=== PATIENT | female | born 1990 | race Caucasian/White ===

== ENCOUNTER → 2020-01-09 10:41 | Outpatient (BNVA) | payer BC, MEDICAID, SELFPAY | PROVIDERS: PCP Orthopaedic Surgery; Visit Provider Family Medicine | DX: L20.89 Other atopic dermatitis (principal); Z34.93 Encounter for supervision of normal pregnancy, unspecified, third trimester | CPT/HCPCS: 80053; 85610; 85730 ==

== ENCOUNTER → 2022-12-17 14:11 | Outpatient (BNVA) | payer BC, MEDICAID, SELFPAY | PROVIDERS: Visit Provider Emergency Medicine | DX: R68.89 Other general symptoms and signs (principal) | CPT/HCPCS: 87400; 87880 ==